=== PATIENT | female | born 1960 | race American Indian/Alaskan Native ===

== ENCOUNTER 2017-12-20 10:01 | Outpatient (CLI) | payer MEDICARE, OTHER ==
--- NOTE | 2017-12-20 14:30 | Mammography Report ---
BILATERAL DIGITAL SCREENING MAMMOGRAM with CAD: 12/20/17 10:01:00 CLINICAL: Routine screening. COMPARISON:08/10/16 FINDINGS: The breasts are almost entirely fatty. No mass, architectural distortion or suspicious calcifications. IMPRESSION: No mammographic evidence of malignancy. BI-RADS CATEGORY: 1 - - Negative RECOMMENDATION: Routine mammographic screening in one year. COMMENT: Patient follow-up letters are generated by our [employer] application.
== END 2017-12-20 10:02 | disposition home or self-care (01) ==
LOC: SPVWC 10:01
PROVIDERS: ATTEND Obstetrics & Gynecology
DX: Z12.31 Encounter for screening mammogram for malignant neoplasm of breast (principal)
CPT/HCPCS: 77067

== ENCOUNTER 2019-03-16 13:05 | Outpatient (CLI) | payer MEDICARE, OTHER ==
--- NOTE | 2019-03-16 13:52 | Mammography Report ---
Bilateral mammogram: Compared to 12/20/17. CAD study utilized. Findings: Predominance and adipose tissue bilaterally. No mass or microcalcification. Benign axilla. Impression: Benign findings. Annual followup recommended. BI-RADS CATEGORY: 2 = Benign ACR BI-RADS MAMMOGRAPHIC CODES: 0 = Needs additional imaging evaluation; 1 = Negative; 2 = Benign; 3 = Probably benign; 4 = Suspicious; 5 = Malignant; 6 = Known biopsy-proven malignancy COMMENT: 1. Dense breast tissue, i.e., adenosis, fibrocystic changes, etc., may obscure an underlying neoplasm. 2. Approximately 10% of cancers are not detected with mammography. 3. A negative mammography report should not delay biopsy if a clinically suspicious mass is present. COMMENT: Patient follow-up letters are generated in [employer].
== END 2019-03-16 13:06 | disposition home or self-care (01) ==
LOC: SPVWC 13:05
PROVIDERS: ATTEND Obstetrics & Gynecology
DX: Z12.31 Encounter for screening mammogram for malignant neoplasm of breast (principal)
CPT/HCPCS: 77067

== ENCOUNTER 2021-05-24 11:12 | Outpatient (CLI) | payer MEDICARE, OTHER ==
--- NOTE | 2021-05-24 18:49 | Mammography Report ---
DIGITAL SCREENING MAMMOGRAM WITH CAD, 05/24/2021 INDICATION: Routine screening mammography. TECHNIQUE: Digital bilateral 2D mammography was obtained in the craniocaudal and mediolateral obliq ue projections. This examination was interpreted with the benefit of Computer-Aided Detection analysi s. COMPARISON: 03/17/2020 FINDINGS: Breast Density: The breasts are almost entirely fatty. There is no evidence of dominant mass, suspicious calcifications or architectural distortion in eithe r breast. IMPRESSION: Follow up recommendation: Routine yearly BI-RADS Category 1: Negative. A "normal" or negative report should not discourage follow up or biopsy of a clinically significant f inding. A written summary of these findings will be mailed to the patient. The patient will be entered into a mammography reporting system which will generate a reminder letter for the patient's next appointmen t at the appropriate interval. The [employer] recommends yearly mammograms starting at age 40 and continuing as l erica as a woman is in good health. Breast MRI is recommended for women with an approximate 20-25% or greater lifetime risk of breast cancer, including women with a strong family history of breast or ova guero cancer or who have been treated for Hodgkin's disease. Signer Name: Salbador Rivas MD Signed: 05/24/2021 6:44 PM Workstation Name: [id number]
== END 2021-05-24 11:13 | disposition home or self-care (01) ==
LOC: SPVWC 11:12
PROVIDERS: ATTEND Obstetrics & Gynecology
DX: Z12.31 Encounter for screening mammogram for malignant neoplasm of breast (principal); N64.89 Other specified disorders of breast
CPT/HCPCS: 77067